=== PATIENT | male | born 1990 | race Caucasian/White ===

== ENCOUNTER 2016-11-05 08:46 | Outpatient (CLI) | payer OTHER ==
--- NOTE | 2016-11-05 12:42 | MRI Report ---
EXAM: MRI CERVICAL SPINE WITHOUT CONTRAST EXAM DATE: 11/05/2016 09:10 AM. CLINICAL HISTORY: Right triceps atrophy. COMPARISONS: None. TECHNIQUE: Multiplanar, multisequence T1-weighted and fluid-sensitive sequences of the cervical spine without contrast. Other: None. FINDINGS: Neurologic Structures: The visualized posterior fossa structures are unremarkable. No signal abnormal ity in the visualized spinal cord. Alignment: There is some straightening of the normal cervical lordotic curvature. Bone Marrow: No gross fractures or bone lesions. No marrow edema. Interspace Levels/Facets: C1-C2: Unremarkable. C2-C3: Unremarkable. C3-C4: Unremarkable. C4-C5: Unremarkable. C5-C6: Left paracentral annular tear and broad-based protrusion touches the left ventral cord on seri es [id number]. No cord edema. Mild central stenosis. No foraminal stenosis. C6-C7: Unremarkable. C7-T1: Unremarkable. Musculature: Normal. No edema or fatty atrophy. Other: The paravertebral and prevertebral soft tissues are normal. IMPRESSION: 1. Some straightening of the normal cervical lordotic curvature. No bony abnormalities. No fractures. 2. C5-C6 shows left paracentral annular tear and broad-based protrusion touching the left ventral cor d. No cord edema. Mild central stenosis. No foraminal narrowing. 3. C6-C7 and C7-T1 are unremarkable. 4. No other abnormal features. [facility] Referring Provider Line: [phone] SITE ID: [id number]
== END 2016-11-05 08:47 | disposition home or self-care (01) ==
LOC: DI 08:46
PROVIDERS: ATTEND Orthopaedic Surgery
DX: M50.222 Other cervical disc displacement at C5-C6 level (principal); M50.322 Other cervical disc degeneration at C5-C6 level
CPT/HCPCS: 72141